=== PATIENT | male | born 1950 | race Two or more races ===

== ENCOUNTER 2018-12-30 12:13 | Inpatient (IN) | payer OTHER ==
[~2018-12-30] VITALS: Ht 165.1 cm; Wt 64.4 kg
[2019-02-10] MEDS ORDERED: NORVASC5 MG PO (08:24)
[2019-02-10] MEDS ORDERED: PROAIR HFA8.5 GM IH (08:25)
[2019-04-05] MEDS ORDERED: GLYCOLAX119 GM (09:04)
[2019-04-05] MEDS ORDERED: CVS ENEMA DISP133 ML (09:04)
[2019-04-05] MEDS ORDERED: DULCOLAX5 MG (09:05)
== END 2019-04-25 11:12 | disposition expired | DRG 329 ==
LOC: SURG 02-10 09:00 → SURH 04-05 08:04 → O/R 04-05 08:04 → ICU 04-05 08:04 → SURG 04-05 09:00 → SURH 04-05 18:28 → ICU 04-09 11:15 → MEDJ 04-18 15:07 → SURH 04-20 21:16
PROVIDERS: ADMIT Colon & Rectal Surgery
PROC: 0KXL0ZZ Transfer Left Abdomen Muscle, Open Approach (ICD-10-PCS; 2019-04-05)
PROC: 0KXK0ZZ Transfer Right Abdomen Muscle, Open Approach (ICD-10-PCS; 2019-04-05)
PROC: 0DJD8ZZ Inspection of Lower Intestinal Tract, Via Natural or Artificial Opening Endoscopic (ICD-10-PCS; 2019-04-05)
PROC: 0DQE0ZZ Repair Large Intestine, Open Approach (ICD-10-PCS; 2019-04-05)
PROC: 0WQF0ZZ Repair Abdominal Wall, Open Approach (ICD-10-PCS; 2019-04-05)
PROC: 0DTN0ZZ Resection of Sigmoid Colon, Open Approach (ICD-10-PCS; principal; 2019-04-05 07:00)
PROC: 3E0F7GC Introduction of Other Therapeutic Substance into Respiratory Tract, Via Natural or Artificial Opening (ICD-10-PCS; 2019-04-06)
PROC: 4A12X4Z Monitoring of Cardiac Electrical Activity, External Approach (ICD-10-PCS; 2019-04-07)
PROC: 4A033R1 Measurement of Arterial Saturation, Peripheral, Percutaneous Approach (ICD-10-PCS; 2019-04-07)
PROC: B32TYZZ Computerized Tomography (CT Scan) of Left Pulmonary Artery using Other Contrast (ICD-10-PCS; 2019-04-08)
PROC: B32SYZZ Computerized Tomography (CT Scan) of Right Pulmonary Artery using Other Contrast (ICD-10-PCS; 2019-04-08)
PROC: B246ZZZ Ultrasonography of Right and Left Heart (ICD-10-PCS; 2019-04-09)
PROC: 8E0ZXY6 Isolation (ICD-10-PCS; 2019-04-12)
PROC: 3E0336Z Introduction of Nutritional Substance into Peripheral Vein, Percutaneous Approach (ICD-10-PCS; 2019-04-12)
PROC: 02HV33Z Insertion of Infusion Device into Superior Vena Cava, Percutaneous Approach (ICD-10-PCS; 2019-04-16)
PROC: 0DH67UZ Insertion of Feeding Device into Stomach, Via Natural or Artificial Opening (ICD-10-PCS; 2019-04-19)
PROC: 3E0G76Z Introduction of Nutritional Substance into Upper GI, Via Natural or Artificial Opening (ICD-10-PCS; 2019-04-19)
PROC: BB24ZZZ Computerized Tomography (CT Scan) of Bilateral Lungs (ICD-10-PCS; 2019-04-22)
PROC: 0BH17EZ Insertion of Endotracheal Airway into Trachea, Via Natural or Artificial Opening (ICD-10-PCS; 2019-04-25)
PROC: 5A1935Z Respiratory Ventilation, Less than 24 Consecutive Hours (ICD-10-PCS; 2019-04-25)
DX: K57.20 Diverticulitis of large intestine with perforation and abscess without bleeding (principal); J95.821 Acute postprocedural respiratory failure; J69.0 Pneumonitis due to inhalation of food and vomit; J15.6 Pneumonia due to other Gram-negative bacteria; J15.211 Pneumonia due to Methicillin susceptible Staphylococcus aureus; J15.8 Pneumonia due to other specified bacteria; J95.89 Other postprocedural complications and disorders of respiratory system, not elsewhere classified; J98.11 Atelectasis; I31.3 Pericardial effusion (noninflammatory); K43.3 Parastomal hernia with obstruction, without gangrene; K43.0 Incisional hernia with obstruction, without gangrene; J44.1 Chronic obstructive pulmonary disease with (acute) exacerbation; K21.9 Gastro-esophageal reflux disease without esophagitis; K44.9 Diaphragmatic hernia without obstruction or gangrene; I07.1 Rheumatic tricuspid insufficiency; I35.8 Other nonrheumatic aortic valve disorders; I11.9 Hypertensive heart disease without heart failure; Z74.01 Bed confinement status; Y95 Nosocomial condition
CPT/HCPCS: 71275